=== PATIENT | female | born 1970 | race Caucasian/White ===

== ENCOUNTER 2017-05-31 18:27 | Emergency (ER) | payer MEDICAID ==
[~2017-05-31] VITALS: Ht 167.6 cm; Wt 92.5 kg
[2017-05-31 22:33] VITALS: BP 127/76
[2017-05-31] MEDS ORDERED: HYDROcodone-ACET 10/325MG TAB PO ONE (23:00)
[2017-05-31] MEDS ORDERED: LET TOPICAL SOLN 5 ML TOP ONE (23:00)
== END 2017-05-31 23:50 | disposition home or self-care (01) ==
LOC: ER 18:27
DX: K08.89 Other specified disorders of teeth and supporting structures (principal); J45.909 Unspecified asthma, uncomplicated; R42 Dizziness and giddiness
CPT/HCPCS: 36415; 71046; 84484; 93005

== ENCOUNTER 2020-08-02 17:31 | Emergency (ER) | payer BC, MEDICAID ==
[~2020-08-02] VITALS: Ht 167.6 cm; Wt 83.9 kg
[2020-08-02 18:58] VITALS: BP 111/56
[2020-08-02] MEDS ORDERED: ACETAMINOPHEN/CODEINE#3 (300/30mg) TAB PO ONE (20:15)
[2020-08-02] MEDS ORDERED: ONDANSETRON ODT 4 MG TAB PO ONE (20:15)
== END 2020-08-02 22:04 | disposition home or self-care (01) ==
LOC: ER 17:31
DX: S83.92XA Sprain of unspecified site of left knee, initial encounter (principal); X58.XXXA Exposure to other specified factors, initial encounter; Y93.89 Activity, other specified; Y92.89 Other specified places as the place of occurrence of the external cause; Y99.8 Other external cause status
CPT/HCPCS: 29505; 73562; 73610; 93971; 99284; Q0162